=== PATIENT | female | born 1935 | race African-American/Black ===

== ENCOUNTER 2019-03-01 11:30 | Emergency (ER) | payer MEDICARE, BC ==
[~2019-03-01] VITALS: Ht 165.1 cm; Wt 66.0 kg
[~2019-03-01 11:30] MED LIST: CELEBREX; COUMADIN; HCTZ; LIPITOR; PREDNISONE; TRIAMTERENE
[2019-03-01] MEDS ORDERED: MORPHINE SULFATE 4 MG/ML CPJ (NOT FOR IM USE) IV STA (12:11)
[2019-03-01] MEDS ORDERED: SODIUM CHLORIDE 0.9% 1,000 ML IV ONE (12:11)
[2019-03-01 12:35] LABS: BASOPHILS % 1.2 % (0.0-2.0); EOSINOPHILS % 2.2 % (0.0-5.0); HEMATOCRIT. 29.3 % (36.0-48.0); HEMOGLOBIN. 9.4 g/dL (12.0-16.0); LYMPHOCYTES % 11.2 % (20.0-50.0); MEAN CORPUSCULAR VOLUME 83.9 fL (81.0-99.0); MEAN PLATELET VOLUME 9.2 fl (7.4-10.4); MONOCYTES % 13.3 % (2.0-8.0); NEUTROPHILS % 72.1 % (40.0-76.0); PLATELET 205 x1000/uL (130-400); RED BLOOD CELL COUNT 3.49 mill/uL (4.2-5.4); RED CELL DISTRIBUTION WIDTH 17.3 % (11.6-14.6)
[2019-03-01 12:41] LABS: CHLORIDE 107 mEq/L (98-107)
[2019-03-01 12:42] LABS: INR 1.1; PROTHROMBIN TIME 11.4 sec (9.1-11.1)
[2019-03-01] MEDS ORDERED: PROPOFOL 200MG/20ML VIAL IV ONE (13:45)
[2019-03-01] MEDS ORDERED: FENTANYL CITRATE/PF 50MCG/ML 2ML VIAL IV ONE (13:45)
[2019-03-01 16:45] VITALS: BP 128/80
== END 2019-03-01 17:22 | disposition home or self-care (01) ==
LOC: ER 11:30
DX: T84.020A Dislocation of internal right hip prosthesis, initial encounter (principal); Y93.H2 Activity, gardening and landscaping; Y92.017 Garden or yard in single-family (private) house as the place of occurrence of the external cause
CPT/HCPCS: 27265; 36415; 71045; 73501; 73502; 80053; 85025; 85610; 93005; 96374; 99152; 99285; J2270; J2704; J3010; J7030

== ENCOUNTER 2019-07-12 23:35 | Inpatient (IN) | payer MEDICARE, BC ==
[~2019-07-12] VITALS: Ht 160 cm; Wt 63.5 kg
[2019-07-13] MEDS ORDERED: ONDANSETRON HCL 4MG/2ML INJ IV STA (00:52)
[2019-07-13] MEDS ORDERED: MORPHINE SULFATE 4 MG/ML CPJ (NOT FOR IM USE) IV STA (00:52)
[2019-07-13 01:37] LABS: BASOPHILS % 1.1 % (0.0-2.0); EOSINOPHILS % 2.1 % (0.0-5.0); HEMATOCRIT. 32.4 % (36.0-48.0); HEMOGLOBIN. 10.7 g/dL (12.0-16.0); LYMPHOCYTES % 16.9 % (20.0-50.0); MEAN CORPUSCULAR HEMOGLOBIN 27.6 pg (28.0-32.0); MEAN PLATELET VOLUME 8.2 fl (7.4-10.4); MONOCYTES % 11.9 % (2.0-8.0); PLATELET 205 x1000/uL (130-400); RED BLOOD CELL COUNT 3.86 mill/uL (4.2-5.4); RED CELL DISTRIBUTION WIDTH 19.9 % (11.6-14.6)
[2019-07-13 01:57] LABS: CHLORIDE 108 mEq/L (98-107)
[2019-07-13] MEDS ORDERED: HYDRALAZINE 20MG/ML VIAL IV PRN (06:45)
[2019-07-13] MEDS ORDERED: LORAZEPAM 2MG/ML CPJ IV PRN (06:45)
[2019-07-13] MEDS ORDERED: DIPHENHYDRAMINE 50MG/ML VIAL IV PRN (06:45)
[2019-07-13] MEDS ORDERED: MAGNESIUM/ALUMINUM HYDROXIDE/SIMETHICONE 30ML UDC PO PRN (06:45)
[2019-07-13] MEDS ORDERED: ONDANSETRON HCL 4MG/2ML INJ IV PRN (06:45)
[2019-07-13] MEDS ORDERED: IPRATROPIUM/ALBUTEROL 0.5-3(2.5)MG/3ML NEB INH PRN (06:45)
[2019-07-13] MEDS ORDERED: CLONIDINE 0.1MG TABLET PO PRN (06:45)
[2019-07-13] MEDS ORDERED: NA PHOS,M-B/NA PHOS,DI-BA ENEMA 118ML PR PRN (06:45)
[2019-07-13] MEDS ORDERED: DOCUSATE SODIUM 100MG CAPSULE PO PRN (06:45)
[2019-07-13] MEDS ORDERED: ACETAMINOPHEN 325MG TABLET PO PRN (06:45)
[2019-07-13] MEDS ORDERED: HYDROCODONE/ACETAMINOPHEN 10/325MG TABLET PO PRN (06:45)
[2019-07-13] MEDS ORDERED: GUAIFENESIN 200MG/10ML SUGAR FREE UDC PO PRN (06:45)
[2019-07-13 09:00] VITALS: BP 151/81
[2019-07-13 09:25] VITALS: BP 151/81
[2019-07-13] MEDS: MORPHINE SULFATE 2 MG/ML CPJ (NOT FOR IM USE) IV PRN ×2 (10:00→15:22)
[2019-07-13] MEDS ORDERED: HYDRALAZINE 10 MG in SODIUM CHLORIDE 0.9% 49.5 ML IV PRN (10:15)
[2019-07-13] MEDS: ENOXAPARIN 40MG/0.4ML SYR SUBCUT SCH (10:31)
[2019-07-13 12:00] VITALS: BP 129/78
[2019-07-13] MEDS ORDERED: PNEUMOCOCCAL 23-VAL P-SAC VAC 0.5 ML IM ONE (14:00)
[2019-07-13] MEDS: SODIUM CHLORIDE 0.9% INJ 3ML FLUSH IVF SCH ×2 (15:03→22:28)
[2019-07-13 16:00] VITALS: BP 146/95
[2019-07-13] MEDS: DEXT 5%/0.45% NACL 1000ML 1,000 ML IV SCH (16:04)
[2019-07-13] MEDS ORDERED: MIDAZOLAM HCL 2 MG/2 ML VIAL ONE (18:10)
[2019-07-13] MEDS ORDERED: FENTANYL CITRATE/PF 50MCG/ML 2ML VIAL ONE (18:10)
[2019-07-13] MEDS ORDERED: PROPOFOL 200MG/20ML VIAL IV ONE (18:20)
[2019-07-13] MEDS ORDERED: LIDOCAINE HCL/PF 1% 10 MG/ML 5ML VIAL ONE (18:20)
[2019-07-13] MEDS ORDERED: SUCCINYLCHOLINE CHLORIDE 200MG/10ML IV ONE (18:20)
[2019-07-13] MEDS ORDERED: ROCURONIUM BROMIDE 10MG/ML VIAL 5ML IV ONE (18:22)
[2019-07-13] MEDS ORDERED: ONDANSETRON HCL 4MG/2ML INJ ONE (18:39)
[2019-07-13] MEDS ORDERED: SODIUM CHLORIDE 0.9% 10ML VIAL ONE (18:54)
[2019-07-13] MEDS ORDERED: HYDRALAZINE 20MG/ML VIAL ONE (18:54)
[2019-07-13 20:50] VITALS: BP 135/73
[2019-07-13 22:00] VITALS: BP 127/73
[2019-07-14] VITALS: BP 123/69
[2019-07-14] MEDS: DEXT 5%/0.45% NACL 1000ML 1,000 ML IV SCH (02:54)
[2019-07-14 04:00] VITALS: BP 120/64
[2019-07-14] MEDS: SODIUM CHLORIDE 0.9% INJ 3ML FLUSH IVF SCH ×2 (05:39→13:56)
[2019-07-14 07:33] LABS: BASOPHILS % 0.7 % (0.0-2.0); EOSINOPHILS % 3.2 % (0.0-5.0); HEMATOCRIT. 31.5 % (36.0-48.0); HEMOGLOBIN. 10.2 g/dL (12.0-16.0); MEAN CORPUSCULAR HEMOGLOBIN 27.5 pg (28.0-32.0); MEAN CORPUSCULAR VOLUME 85.1 fL (81.0-99.0); MEAN PLATELET VOLUME 8.8 fl (7.4-10.4); MONOCYTES % 11.9 % (2.0-8.0); NEUTROPHILS % 68.2 % (40.0-76.0); PLATELET 188 x1000/uL (130-400); RED CELL DISTRIBUTION WIDTH 20.2 % (11.6-14.6)
[2019-07-14 07:52] LABS: CHLORIDE 107 mEq/L (98-107)
[2019-07-14 08:00] VITALS: BP 117/67
[2019-07-14] MEDS: ENOXAPARIN 40MG/0.4ML SYR SUBCUT SCH (08:50)
[2019-07-14] MEDS ORDERED: POTASSIUM CHLORIDE 20MEQ TABLET SR PO NR (10:45)
[2019-07-14 12:00] VITALS: BP 119/66
[2019-07-14] MEDS ORDERED: FURO-152 MT (14:00)
[2019-07-14] MEDS ORDERED: ARAV20 MT (14:12)
[2019-07-14] MEDS ORDERED: LIP40 MT (14:12)
[2019-07-14] MEDS ORDERED: OMEP40CA34 MT (14:12)
[2019-07-14] MEDS ORDERED: DORZ10DR12 EACHEYE (14:12)
[2019-07-14] MEDS ORDERED: PROP60CA MT (14:12)
[2019-07-14] MEDS ORDERED: ASPI325T85 MT (14:12)
[2019-07-14] MEDS ORDERED: HYDR200T80 MT (14:12)
[2019-07-14] MEDS ORDERED: AMLO1TAB15 MT (14:12)
[2019-07-14] MEDS ORDERED: CHOL100053 MT (14:18)
[2019-07-14] MEDS ORDERED: PATAODR EACHEYE (14:18)
[2019-07-14] MEDS ORDERED: BRIM.2 EACHEYE (14:18)
[2019-07-14] MEDS ORDERED: ERYT-113 MT (14:18)
[2019-07-14] MEDS ORDERED: TOFA5TAB MT (14:18)
[2019-07-14] MEDS ORDERED: LATA2.5D4 EACHEYE (14:18)
[2019-07-14] MEDS ORDERED: HYDRALAZINE 20MG/ML VIAL IV PRN (15:00)
[2019-07-14 16:00] VITALS: BP 115/66
[2019-07-14 18:06] VITALS: BP 115/66
== END 2019-07-14 20:10 | disposition home health service (06) | DRG 560 ==
LOC: ER 23:35 → 6EST 07-13 01:48 → ENRESERV 07-13 07:02 → 5WST 07-13 22:00
PROVIDERS: ADMIT Internal Medicine; ATTEND Internal Medicine
PROC: 0SS9XZZ Reposition Right Hip Joint, External Approach (ICD-10-PCS; principal; 2019-07-13)
DX: T84.020A Dislocation of internal right hip prosthesis, initial encounter (principal); E44.1 Mild protein-calorie malnutrition; E78.5 Hyperlipidemia, unspecified; E78.00 Pure hypercholesterolemia, unspecified; I10 Essential (primary) hypertension; D64.9 Anemia, unspecified; K21.9 Gastro-esophageal reflux disease without esophagitis; M32.9 Systemic lupus erythematosus, unspecified; M19.90 Unspecified osteoarthritis, unspecified site; W18.39XA Other fall on same level, initial encounter; Y79.2 Prosthetic and other implants, materials and accessory orthopedic devices associated with adverse incidents; Y93.89 Activity, other specified; Z88.8 Allergy status to other drugs, medicaments and biological substances; Y92.89 Other specified places as the place of occurrence of the external cause; Z87.01 Personal history of pneumonia (recurrent); Y99.8 Other external cause status; Z68.24 Body mass index [BMI] 24.0-24.9, adult
CPT/HCPCS: 36415; 73501; 73502; 73560; 80048; 90732; 93005; 96374; 97116; 97162; 97530; 97535; 99285; J0330; J0360; J1650; J2250; J2270; J2405; J2704; J3010; J3490

== ENCOUNTER 2019-09-12 12:22 | Inpatient (IN) | payer MEDICARE, BC ==
[~2019-09-12] VITALS: Ht 157.5 cm; Wt 81.7 kg
[~2019-09-12 12:22] MED LIST changes: +AMLO1TAB15 MT; +ARAV20 MT; +ASPI325T85 MT; +BRIM.2 EACHEYE; +CHOL100053 MT; +DORZ10DR12 EACHEYE; +ERYT-113 MT; +FURO-152 MT; +HYDR200T80 MT; +LATA2.5D4 EACHEYE; +LIP40 MT; +OMEP40CA34 MT; +PATAODR EACHEYE; +PROP60CA MT; +TOFA5TAB MT
[2019-09-12] MEDS ORDERED: SODIUM CHLORIDE 0.9% 1,000 ML IV ONE (13:31)
[2019-09-12] MEDS ORDERED: ONDANSETRON HCL 4MG/2ML INJ IV STA (13:31)
[2019-09-12] MEDS ORDERED: MORPHINE SULFATE 4 MG/ML CPJ (NOT FOR IM USE) IV STA (13:31)
[2019-09-12] MEDS ORDERED: MORPHINE SULFATE 4 MG/ML CPJ (NOT FOR IM USE) IV ONE (13:45)
[2019-09-12] MEDS ORDERED: ETOMIDATE 2MG/ML 10ML VIAL IV ONE ×2 (13:45→16:45)
[2019-09-12 15:23] LABS: BASOPHILS % 0.7 % (0.0-2.0); EOSINOPHILS % 4.4 % (0.0-5.0); HEMATOCRIT. 34.9 % (36.0-48.0); LYMPHOCYTES % 15.9 % (20.0-50.0); MEAN CORPUSCULAR HEMOGLOBIN 26.9 pg (28.0-32.0); MEAN CORPUSCULAR VOLUME 85.4 fL (81.0-99.0); MEAN PLATELET VOLUME 8.5 fl (7.4-10.4); MONOCYTES % 12.3 % (2.0-8.0); NEUTROPHILS % 66.7 % (40.0-76.0); PLATELET 206 x1000/uL (130-400); RED BLOOD CELL COUNT 4.09 mill/uL (4.2-5.4); RED CELL DISTRIBUTION WIDTH 20.2 % (11.6-14.6)
[2019-09-12 15:32] LABS: INR 1.1; PROTHROMBIN TIME 11.3 sec (9.6-11.0)
[2019-09-12 15:33] LABS: CHLORIDE 107 mEq/L (98-107)
[2019-09-12 20:00] VITALS: BP 133/80
[2019-09-12] MEDS ORDERED: MORPHINE SULFATE 2 MG/ML CPJ (NOT FOR IM USE) IV PRN (20:30)
[2019-09-12] MEDS ORDERED: ONDANSETRON HCL 4MG/2ML INJ IV PRN (20:30)
[2019-09-12] MEDS ORDERED: OLOPATADINE HCL EACHEYE PRN (20:45)
[2019-09-12] MEDS ORDERED: PRED12O LEFTEYE (21:00)
[2019-09-12] MEDS ORDERED: TRIA1TAB92 PO (21:00)
[2019-09-12] MEDS ORDERED: NAPHAZOLINE HCL/PHENIR MAL OPHTH SOLN 15ML BOTHEYE PRN (21:30)
[2019-09-12] MEDS ORDERED: ATORVASTATIN CALCIUM 40MG TABLET PO SCH (21:30)
[2019-09-12] MEDS: PROPRANOLOL HCL 10MG TABLET PO SCH (22:51)
[2019-09-13] VITALS: BP 125/80
[2019-09-13 04:00] VITALS: BP 104/67
[2019-09-13] MEDS ORDERED: OMEPRAZOLE 20MG CAPSULE EXTENDED RELEASE PO SCH (07:20)
[2019-09-13] MEDS ORDERED: LOSARTAN POTASSIUM 25 MG TABLET PO SCH (09:00)
[2019-09-13] MEDS ORDERED: TOFACITINIB CITRATE PO SCH (09:00)
[2019-09-13] MEDS: PROPRANOLOL HCL 10MG TABLET PO SCH (09:00)
[2019-09-13] MEDS ORDERED: AMLODIPINE 10MG TABLET PO SCH (09:00)
[2019-09-13] MEDS ORDERED: PREDNISOLONE ACETATE 1% OPHTH DROPS 5ML LEFTEYE SCH (09:00)
[2019-09-13] MEDS: BRIMONIDINE 0.2% OPHTH DROPS 5ML EACHEYE SCH ×2 (10:32→17:22)
[2019-09-13] MEDS: LATANOPROST 0.005% OPHTH DROPS 2.5ML EACHEYE SCH ×2 (10:32→17:22)
[2019-09-13] MEDS: DORZOLAM/TIMOLOL 2.23/0.68% OPHTH DROPS 10ML EACHEYE SCH ×2 (10:32→17:22)
[2019-09-13 15:22] VITALS: BP 118/73
== END 2019-09-13 18:15 | disposition home health service (06) | DRG 561 ==
LOC: ER 12:22 → 6EST 16:29 → ENRESERV 17:28
PROVIDERS: ADMIT Internal Medicine; ATTEND Internal Medicine
PROC: 0SS9XZZ Reposition Right Hip Joint, External Approach (ICD-10-PCS; principal; 2019-09-12)
DX: T84.020A Dislocation of internal right hip prosthesis, initial encounter (principal); D64.9 Anemia, unspecified; K21.9 Gastro-esophageal reflux disease without esophagitis; I10 Essential (primary) hypertension; E78.5 Hyperlipidemia, unspecified; M32.9 Systemic lupus erythematosus, unspecified; M19.90 Unspecified osteoarthritis, unspecified site; Y83.1 Surgical operation with implant of artificial internal device as the cause of abnormal reaction of the patient, or of later complication, without mention of misadventure at the time of the procedure; Z88.8 Allergy status to other drugs, medicaments and biological substances; Z87.01 Personal history of pneumonia (recurrent); Y92.89 Other specified places as the place of occurrence of the external cause
CPT/HCPCS: 36415; 71045; 72170; 73523; 84484; 86850; 86900; 93005; 97162; 97535; 99285; J2270; J2405; J3490; J7030

== ENCOUNTER 2020-01-04 10:15 | Emergency (ER) | payer MEDICARE, BC ==
[~2020-01-04] VITALS: Ht 160 cm; Wt 63.0 kg
[~2020-01-04 10:15] MED LIST changes: -ASPI325T85 MT; -HYDR200T80 MT; +OMEP40CA12 MT; -OMEP40CA34 MT; +PRED12O LEFTEYE; -PROP60CA MT; +PROP60CA37 MT; +TRIA1TAB92 PO
[2020-01-04] MEDS ORDERED: MORPHINE SULFATE 4 MG/ML CPJ (NOT FOR IM USE) IV STA (11:18)
[2020-01-04] MEDS ORDERED: ONDANSETRON HCL 4MG/2ML INJ IV STA (11:18)
[2020-01-04 12:16] LABS: BASOPHILS % 0.9 % (0.0-2.0); EOSINOPHILS % 1.4 % (0.0-5.0); HEMOGLOBIN. 10.2 g/dL (12.0-16.0); LYMPHOCYTES % 10.8 % (20.0-50.0); MEAN CORPUSCULAR HEMOGLOBIN 29.1 pg (28.0-32.0); MEAN CORPUSCULAR VOLUME 94.1 fL (81.0-99.0); MEAN PLATELET VOLUME 9.4 fl (7.4-10.4); MONOCYTES % 7.3 % (2.0-8.0); NEUTROPHILS % 79.6 % (40.0-76.0); PLATELET 217 x1000/uL (130-400); RED BLOOD CELL COUNT 3.51 mill/uL (4.2-5.4); RED CELL DISTRIBUTION WIDTH 19.7 % (11.6-14.6)
[2020-01-04 12:18] LABS: INR 1.1; PROTHROMBIN TIME 11.3 sec (9.6-11.0)
[2020-01-04 12:19] LABS: CHLORIDE 111 mEq/L (98-107)
[2020-01-04] MEDS ORDERED: ETOMIDATE 2MG/ML 10ML VIAL IV ONE (12:30)
[2020-01-04] MEDS ORDERED: ONDANSETRON HCL 4MG/2ML INJ IV ONE (12:30)
[2020-01-04] MEDS ORDERED: PROPOFOL 200MG/20ML VIAL IV ONE (12:30)
[2020-01-04 17:10] VITALS: BP 142/70
== END 2020-01-04 17:14 | disposition home or self-care (01) ==
LOC: ER 10:15
DX: S73.004A Unspecified dislocation of right hip, initial encounter (principal); D64.9 Anemia, unspecified; I10 Essential (primary) hypertension; Z88.6 Allergy status to analgesic agent; Z88.1 Allergy status to other antibiotic agents; Z79.899 Other long term (current) drug therapy; X58.XXXA Exposure to other specified factors, initial encounter; Y93.89 Activity, other specified; Y92.89 Other specified places as the place of occurrence of the external cause; Y99.8 Other external cause status
CPT/HCPCS: 27250; 29505; 36415; 73501; 73502; 80053; 85025; 85610; 93005; 96374; 96375; 99152; 99285; J2270; J2405; J2704; J3490

== ENCOUNTER 2020-04-14 00:32 | Emergency (ER) | payer MEDICARE, BC ==
[~2020-04-14] VITALS: Ht 170.2 cm; Wt 64.0 kg
[2020-04-14] MEDS ORDERED: MORPHINE SULFATE 4 MG/ML CPJ (NOT FOR IM USE) IV ONE (01:00)
[2020-04-14] MEDS ORDERED: ONDANSETRON HCL 4MG/2ML INJ IM ONE (01:00)
[2020-04-14] MEDS ORDERED: KETAMINE HCL 50 MG/ML 10ML IV ONE ×2 (02:45→05:30)
[2020-04-14] MEDS ORDERED: PROPOFOL 200MG/20ML VIAL IV ONE ×2 (02:45→05:30)
[2020-04-14 05:36] VITALS: BP 138/71
== END 2020-04-14 05:30 | disposition home or self-care (01) ==
LOC: ER 00:32
DX: S73.004A Unspecified dislocation of right hip, initial encounter (principal); E78.00 Pure hypercholesterolemia, unspecified; I10 Essential (primary) hypertension; Z88.6 Allergy status to analgesic agent; Z88.1 Allergy status to other antibiotic agents; Z79.899 Other long term (current) drug therapy; Z96.641 Presence of right artificial hip joint; W13.8XXA Fall from, out of or through other building or structure, initial encounter; Y93.89 Activity, other specified; Y92.89 Other specified places as the place of occurrence of the external cause; Y99.8 Other external cause status
CPT/HCPCS: 27265; 73501; 73502; 96372; 96374; 99152; 99285; J2270; J2405; J2704; J3490; 27250; 96375; 96376

== ENCOUNTER 2021-11-06 19:15 | Inpatient (IN) | payer MEDICARE, BC ==
[~2021-11-06] VITALS: Ht 157.5 cm; Wt 59.0 kg
[~2021-11-06 19:15] MED LIST changes: -ERYT-113 MT; -OMEP40CA12 MT; +OMEP40CA20 MT; +[UNRECOGNIZED DRUG - CODE] MT
[2021-11-06] MEDS ORDERED: SODIUM CHLORIDE 0.9% 1,000 ML IV ONE (20:00)
[2021-11-06] MEDS ORDERED: IOHEXOL-350 100 ML BOTTLE ONE ×2 (20:15→20:30)
[2021-11-06 21:53] LABS: BASOPHILS % 0.6 % (0.0-2.0); EOSINOPHILS % 3.4 % (0.0-5.0); HEMATOCRIT. 36.1 % (36.0-48.0); HEMOGLOBIN. 11.5 g/dL (12.0-16.0); LYMPHOCYTES % 17.4 % (20.0-50.0); MEAN CORPUSCULAR HEMOGLOBIN 28.2 pg (28.0-32.0); MEAN CORPUSCULAR VOLUME 88.8 fL (81.0-99.0); MEAN PLATELET VOLUME 8.5 fl (7.4-10.4); MONOCYTES % 12.6 % (2.0-8.0); PLATELET 187 x1000/uL (130-400); RED BLOOD CELL COUNT 4.06 mill/uL (4.2-5.4); RED CELL DISTRIBUTION WIDTH 18.5 % (11.6-14.6)
[2021-11-06 21:55] LABS: CHLORIDE 100 mEq/L (98-107)
[2021-11-06 21:58] LABS: INR 1.1; PROTHROMBIN TIME 11.7 sec (9.6-11.0)
[2021-11-06 21:59] LABS: ETHANOL BLOOD < 10 mg/dL
[2021-11-06] MEDS ORDERED: ASPIRIN 325MG EC TABLET PO SCH (23:30)
[2021-11-06] MEDS ORDERED: POTASSIUM CHLORIDE 20MEQ TABLET SR PO ONE (23:45)
[2021-11-07 01:41] LABS: CLARITY URINE CLEAR (CLEAR); COLOR URINE YELLOW (YELLOW); KETONES URINE NEGATIVE (NEGATIVE); LEUKOCYTE ESTERASE URINE 1+ (NEGATIVE); NITRITE URINE NEGATIVE (NEGATIVE); OCCULT BLOOD URINE NEGATIVE (NEGATIVE); PH URINE 5.5 (4.5-8.0); PROTEIN URINE NEGATIVE (NEGATIVE); UROBILINOGEN URINE 0.2 E.U./dL (0.2-1.0)
[2021-11-07 01:59] LABS: *AMPHETAMINES SCREEN URINE NEGATIVE (NEGATIVE); *BARBITURATES SCREEN URINE NEGATIVE (NEGATIVE); *BENZODIAZEPINES SCREEN URINE NEGATIVE (NEGATIVE); *COCAINE SCREEN URINE NEGATIVE (NEGATIVE); METHADONE URINE SCREEN NEGATIVE (NEGATIVE)
[2021-11-07 02:00] LABS: CANNABINOID URINE SCREEN NEGATIVE (NEGATIVE); OPIATES URINE SCREEN NEGATIVE (NEGATIVE); PHENCYCLIDINE URINE SCREEN NEGATIVE (NEGATIVE)
[2021-11-07] MEDS ORDERED: CEFTRIAXONE 1 G PREMIX 50 ML IV SCH (11:30)
[2021-11-07] MEDS: CEFTRIAXONE 1,000 MG in DEXTROSE 5% WATER 50 ML IV SCH (13:43)
[2021-11-07 18:00] VITALS: BP 127/80
[2021-11-07 18:05] VITALS: BP 127/80
[2021-11-07 20:00] VITALS: BP 130/67
[2021-11-07] MEDS ORDERED: ENOXAPARIN 30MG/0.3ML SYR SUBCUT SCH (21:00)
[2021-11-07] MEDS ORDERED: LATANOPROST 0.005% OPHTH DROPS 2.5ML EACHEYE SCH (21:00)
[2021-11-07] MEDS ORDERED: ATORVASTATIN CALCIUM 40MG TABLET PO SCH (21:00)
[2021-11-08] VITALS: BP 119/64
[2021-11-08 04:00] VITALS: BP 108/57
[2021-11-08 08:00] VITALS: BP 124/61
[2021-11-08] MEDS ORDERED: TRAMADOL 50MG TABLET PO PRN (08:45)
[2021-11-08] MEDS ORDERED: BRIMONIDINE 0.2% OPHTH DROPS 5ML EACHEYE SCH (09:00)
[2021-11-08] MEDS ORDERED: ASPIRIN 81MG TABLET PO SCH (09:00)
[2021-11-08] MEDS ORDERED: FUROSEMIDE 20MG TABLET PO SCH (09:00)
[2021-11-08] MEDS ORDERED: DORZOLAM/TIMOLOL 2.23/0.68% OPHTH DROPS 10ML EACHEYE SCH (09:00)
[2021-11-08] MEDS: CEFTRIAXONE 1,000 MG in DEXTROSE 5% WATER 50 ML IV SCH (11:30)
[2021-11-08 12:00] VITALS: BP 112/58
[2021-11-08 12:56] LABS: BASOPHILS % 0.7 % (0.0-2.0); EOSINOPHILS % 3.9 % (0.0-5.0); HEMATOCRIT. 34.1 % (36.0-48.0); HEMOGLOBIN. 10.8 g/dL (12.0-16.0); MEAN CORPUSCULAR HEMOGLOBIN 28.1 pg (28.0-32.0); MEAN CORPUSCULAR VOLUME 88.6 fL (81.0-99.0); MEAN PLATELET VOLUME 8.6 fl (7.4-10.4); MONOCYTES % 14.8 % (2.0-8.0); NEUTROPHILS % 66.6 % (40.0-76.0); PLATELET 179 x1000/uL (130-400); RED BLOOD CELL COUNT 3.85 mill/uL (4.2-5.4)
[2021-11-08 12:58] VITALS: BP 121/66
== END 2021-11-08 14:30 | disposition home or self-care (01) | DRG 682 ==
LOC: ER 19:15 → MICUSO 23:23 → EDBEDREQ 23:27 → EDBEDREQTM 23:27 → EDBEDREQSVC 23:27 → 7EST 11-07 16:57
PROVIDERS: ADMIT Internal Medicine; ATTEND Internal Medicine
DX: N17.0 Acute kidney failure with tubular necrosis (principal); G93.41 Metabolic encephalopathy; E87.1 Hypo-osmolality and hyponatremia; I50.40 Unspecified combined systolic (congestive) and diastolic (congestive) heart failure; N39.0 Urinary tract infection, site not specified; E87.6 Hypokalemia; E11.9 Type 2 diabetes mellitus without complications; E78.00 Pure hypercholesterolemia, unspecified; E78.5 Hyperlipidemia, unspecified; I11.0 Hypertensive heart disease with heart failure; D64.9 Anemia, unspecified; M19.90 Unspecified osteoarthritis, unspecified site; Z20.822 Contact with and (suspected) exposure to COVID-19; K21.9 Gastro-esophageal reflux disease without esophagitis; Z96.649 Presence of unspecified artificial hip joint; Z88.1 Allergy status to other antibiotic agents; Z88.8 Allergy status to other drugs, medicaments and biological substances; Z79.899 Other long term (current) drug therapy; Z79.84 Long term (current) use of oral hypoglycemic drugs
CPT/HCPCS: 36415; 70496; 70498; 70551; 71045; 80048; 80053; 80305; 80307; 80320; 80329; 81003; 82962; 83036; 84484; 85025; 87426; 93005; 99291; J0696; J1650; J7030; J7060; Q9967; G0480